=== PATIENT | female | born 1990 | race Caucasian/White ===

== ENCOUNTER 2016-10-22 11:57 | Emergency (ER) | payer OTHER ==
[~2016-10-22] VITALS: Ht 160 cm; Wt 63.5 kg
[2016-10-22 12:15] VITALS: BP 117/68
[2016-10-22] MEDS ORDERED: AMOX500T PO (12:41)
--- NOTE | 2016-10-22 12:42 | PHYS DOC ---
Past Medical History Past Medical History: No Pertinent History Past Surgical History: Tubal ligation Additional Information: nonsmoker Alcohol Use: Occasionally Drug Use: None Adult General Chief Complaint Chief Complaint: DENTAL PROBLEM HPI HPI Patient is a 26 year old female who presents with right jaw pain and swelling starting yesterday. She had pain in the neck and jaw yesterday and then awoke this morning with swelling. She denies fever, sore throat, nasal congestion, cough, shortness of breath, or dental pain. The pain and swelling do not change with eating or drinking. She has pain with opening the jaw. She does not have a PCP. Review of Systems Review of Systems Constitutional: Denies fever or chills. [] Eyes: Denies change in visual acuity, redness, or eye pain. [] HENT: Denies ear pain, nasal congestion or sore throat. Denies dental pain. Reports right jaw pain and swelling. Respiratory: Denies cough or shortness of breath. [] Musculoskeletal: Denies back pain or joint pain. [] Integument: Denies rash or skin lesions. [] Neurologic: Denies headache, focal weakness or sensory changes. [] Allergies Allergies Allergies Coded Allergies Type Severity Reaction Last Updated Verified No Known Drug Allergies 10/22/16 No Physical Exam Physical Exam Constitutional: Well developed, well nourished, no acute distress, non-toxic appearance. [] HENT: Normocephalic, atraumatic, bilateral external ears normal, oropharynx moist, no oral exudates, nose normal. Bilateral TMs without erythema or bulging. There is no posterior pharyngeal erythema or tonsillar edema. There is no dental tenderness or dental abscess. There is no trismus. Eyes: PERRLA, EOMI, conjunctiva normal, no discharge. [] Neck: Normal range of motion, supple, no stridor. There is mild swelling below the right ankle of the mandible with tenderness on palpation. There is no cervical lymphadenopathy. Cardiovascular: Heart rate regular rhythm, no murmur [] Lungs & Thorax: Bilateral breath sounds clear to auscultation without wheezes, rales, or rhonchi. Skin: Warm, dry, no erythema, no rash. [] Neurologic: Alert and oriented X 3, normal motor function, normal sensory function, no focal deficits noted. [] Psychologic: Affect normal, judgement normal, mood normal. [] Current Patient Data Vital Signs Vital Signs Date Time Temp Pulse Resp B/P Pulse Ox O2 Delivery O2 Flow Rate FiO2 10/22/16 12:15 98.0 85 16 97 Room Air 98.0 EKG EKG [] Radiology/Procedures Radiology/Procedures [] Course & Med Decision Making Course & Med Decision Making Pertinent Labs and Imaging studies reviewed. (See chart for details) [] Dragon Disclaimer Dragon Disclaimer This electronic medical record was generated, in whole or in part, using a voice recognition dictation system. Departure Departure Impression: Primary Impression: Submandibular lymphadenopathy Disposition: HOME, SELF-CARE Condition: STABLE Patient Instructions: Upper Respiratory Infection, Adult, [id number] Additional Instructions: You were seen for swelling in one of the lymph nodes in your neck. This is likely due to an upper respiratory infection that is developing. Return to the emergency department if you have increased swelling, fever, difficulty breathing, difficulty swallowing, or other new or concerning symptoms. Scripts Amoxicillin 500 Mg Tablet1 Tab PO TID #30 TAB Prov:SOHEILA CHU 10/22/16 SOHEILA CHU Oct 22, 2016 12:42
== END 2016-10-22 12:48 | disposition home or self-care (01) ==
LOC: ER 11:57
DX: R59.0 Localized enlarged lymph nodes (principal)
CPT/HCPCS: 99283

== ENCOUNTER 2020-11-10 23:09 | Emergency (ER) | payer BC, MEDICAID, OTHER ==
[~2020-11-10] VITALS: Ht 160 cm; Wt 59.1 kg
[~2020-11-10 23:09] MED LIST: AMOX500T PO
--- NOTE | 2020-11-10 23:35 | PHYS DOC ---
Past Medical History Past Medical History: No Pertinent History Past Surgical History: Tubal ligation Smoking Status: Never Smoker Alcohol Use: Occasionally Drug Use: None General Adult EDM: Chief Complaint: NECK PAIN HPI: HPI: Patient is a 30 year old female presents to the emergency department complaining of waking up with a 6 the right side of her neck Monday morning. Patient denies any acute injury, denies any recent injury. Patient denies any recent infections. 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 Patient states that she did not work Monday however noticed her neck pain increase and sensation when she worked outside all day yesterday. Patient denies any numbness or tingling to her extremities, denies any midline spinal neck pain. Patient denies any chest pain, shortness of breath, nasal congestion or respiratory congestion. She denies any other physical complaints or physical concerns. Patient states her last menstrual period was on the first of this month normal duration of flow. Patient states she has had a tubal ligation in the past. Patient reports she is a pack-a-day smoker, does not drink alcohol or use any illicit drugs. Review of Systems: Review of Systems: 14 body systems of review of systems have been reviewed. See HPI for pertinent positives and negative responses, otherwise all other systems are negative, nonpertinent or noncontributory. Heart Score: Risk Factors: Risk Factors: DM, Current or recent (<one month) smoker, HTN, HLP, family history of CAD, obesity. Risk Scores: Score 0 - 3: 2.5% MACE over next 6 weeks - Discharge Home Score 4 - 6: 20.3% MACE over next 6 weeks - Admit for Clinical Observation Score 7 - 10: 72.7% MACE over next 6 weeks - Early Invasive Strategies Allergies: Allergies: Allergies Coded Allergies Type Severity Reaction Last Updated Verified No Known Drug Allergies 10/22/16 No Physical Exam: PE: Constitutional: Well developed, well nourished, no acute distress, non-toxic appearance. HENT: Normocephalic, atraumatic, bilateral external ears normal, oropharynx moist, no oral exudates, nose normal. Eyes: PERRLA, EOMI, conjunctiva normal, no discharge. Neck: Normal range of motion, supple, no stridor. No midline spinal tenderness, no nuchal rigidity, no meningismus signs, pain to palpation along sternocleidomastoid muscle near mastoid insertion site, no swelling appreciated, no lymphadenopathy appreciated of the head and neck. Cardiovascular:Heart rate regular rhythm, no murmur Lungs & Thorax: Bilateral breath sounds clear to auscultation Abdomen: Bowel sounds normal, soft, no tenderness, no masses, no pulsatile masses. Skin: Warm, dry, no erythema, no rash. Back: No tenderness, no CVA tenderness. Extremities: No tenderness, no cyanosis, no clubbing, ROM intact, no edema. Neurologic: Alert and oriented X 3, normal motor function, normal sensory function, no focal deficits noted. Psychologic: Affect normal, judgement normal, mood normal. Current Patient Data: Labs: Laboratory Tests Test 11/10/20 23:22 POC Urine HCG, Qualitative Hcg negative (Negative) EKG: EKG: [] Radiology/Procedures: Radiology/Procedures: [] Course & Med Decision Making: Course & Med Decision Making Pertinent Labs and Imaging studies reviewed. (See chart for details) 30-year-old female, vital signs reviewed, presents emergency department complaining of neck pain. Physical examination was consistent with wry neck. W e will treat with IM Depo-Medrol 80 mg, 60 mg IM Toradol, 10 mg p.o. Flexeril, 2 tablets of 5/325 hydrocodone. Discussed findings with patient, patient gave verbal understanding of discharge home instructions, ice therapy, home prescription instructions, work excuse, follow-up with primary care for ongoing aches and pains, return to ER precautions and concerns, patient was discharged home without incident. Tim Disclaimer: Tim Disclaimer: This electronic medical record was generated, in whole or in part, using a voice recognition dictation system. Departure Departure Impression: Primary Impression: Wry neck Disposition: 01 DC HOME SELF CARE/HOMELESS Condition: GOOD Referrals: NO PCP (PCP) Additional Instructions: Please take medications as prescribed, follow-up with your primary care doctor for ongoing aches and pains, return to the emergency department for worsening symptoms or other concerns. EMERGENCY DEPARTMENT GENERAL DISCHARGE INSTRUCTIONS Thank you for coming to [facility] Emergency Department (ED) today and trusting us with you care. We trust that you had a positive experience in our Emergency Department. If you wish to speak to the department management, you may call the Director at [phone]. YOUR FOLLOW UP INSTRUCTIONS ARE FOLLOWS: 1. Do you have a private Doctor? If you do not have a private doctor, please ask for a resource list of physicians or clinics that may be able to assist you with fo llow up care. 2. The Emergency Physicain has interpreted your x-rays. The X-Ray specialist will also review them. If there is a change in the findings, you will be notified in 48 hours when at all possible. 3. A lab test or culture has been done, your results will be reviewed and you will be notified if you need a change in treatment. ADDITIONAL INSTRUCTIONS AND INFORMATION: 1. Your care today has been supervised by a physician who is specially trained in emergency care. Many problems require more than one evaluation for a complete diagnosis and treatment. We recommend that you schedule your follow up appointment as recommended to ensure complete treatment of you illness or injury. If you are unable to obtain follow up care and continue to have a problem, or if your condition worsens, we recommend that you return to the ED. 2. We are not able to safely determine your condition over the phone nor are we able to give sound medical advice over the phone. For these safety reasons, if you call for medical advice we will ask you to come to the ED for further evaluation. 3. If you have any questions regarding these discharge instructions please call the ED at [phone]. SAFETY INFORMATION: In the interest of safety, wellness, and injury prevention; we encourage you to wear your sealbelt, if you smoke; quite smoking, and we encourage family to use a protecti ve helmet for bicycling and other sporting events that present an increased risk for head injury. IF YOUR SYMPTOMS WORSEN OR NEW SYMPTOMS DEVELOP, OR YOU HAVE CONCERNS ABOUT YOUR CONDITION; OR IF YOUR CONDITION WORSENS WHILE YOU ARE WAITING FOR YOUR FOLLOW UP APPOINTMENT; EITHER CONTACT YOUR PRIMARY CARE DOCTOR, THE PHYSICIAN WHOSE NAME AND NUMBER YOU WERE GIVEN, OR RETURN TO THE ED IMMEDIATELY. Scripts Ibuprofen (IBUPROFEN) 600 Mg Tablet 600 MG PO PRN Q6HRS PRN for INFLAMMATION, #20 TAB 0 Refills Prov: MARQUES DUPONT APRN 11/10/20 Cyclobenzaprine Hcl (CYCLOBENZAPRINE HCL) 10 Mg Tablet 10 MG PO TID for MUSCLE STIFFNESS, #15 TAB 0 Refills Prov: MARQUES DUPONT APRN 11/10/20 MARQUES DUPONT APRN Nov 10, 2020 23:35
[2020-11-10] MEDS ORDERED: IBUP-1007 PO (23:48)
[2020-11-10] MEDS ORDERED: CYCL10TA2 PO (23:48)
[2020-11-11] MEDS ORDERED: CYCLOBENZAPRINE 10 MG TABLET. PO ONE
[2020-11-11] MEDS ORDERED: HYDROcodone/APAP 5/325MG 1 TAB TABLET PO ONE
[2020-11-11] MEDS ORDERED: methylPREDNISolone ACETATE 80 MG/ML VIAL. IM ONE
[2020-11-11] MEDS ORDERED: KETOROLAC 60 MG/2 ML VIAL. IM ONE
[2020-11-11 00:01] VITALS: BP 125/69
== END 2020-11-11 00:16 | disposition home or self-care (01) ==
LOC: ER 23:09
DX: M43.6 Torticollis (principal); R20.2 Paresthesia of skin; Z98.51 Tubal ligation status
CPT/HCPCS: 81025; 96372; 99284; J1040; J1885